=== PATIENT | male | born 1945 | race Caucasian/White ===

== ENCOUNTER 2019-04-11 14:08 | Emergency (ER) | payer MEDICARE, OTHER ==
[~2019-04-11] VITALS: Ht 177.8 cm; Wt 117.9 kg
[~2019-04-11 14:08] MED LIST: ACET325 PO; ALBU3IS; ALFALFA PO; ALFALFA600 MG PO; ASCO500 PO; ASPIRIN 81 MG PO; Ativan1 MG PO; CITA20 PO; Ceftriaxone2 G1 IV; Colace100 MG PO; DOXY100 PO; GABA300 PO; GINGER ROOT1 GM PO; LEVFLO500 PO; LORA1 PO; METH10 PO; NICO14TP TOP; Neurontin300 MG PO; OMEP20ER PO; OXYC30 PO; PAU D ARCO PO; PREG200 PO; Prednisone20 MG PO; VITAMIN C PO; WARF6 PO; [UNRECOGNIZED DRUG - OTHER] PO
[2019-04-11 15:50] LABS: BASOPHILS ABSOLUTE AUTO 0.06 K/mm3 (0.00-0.23); BASOPHILS PERCENT AUTO 1 % (0-2); EOSINOPHILS ABSOLUTE AUTO 0.06 K/mm3 (0.00-0.68); EOSINOPHILS PERCENT AUTO 1 % (0-6); Hematocrit 48.6 % (37.0-53.0); Hemoglobin 14.5 g/dL (13.5-17.5); IMMATURE GRAN ABSOLUTE AUTO 0.05 K/mm3 (0.00-0.10); IMMATURE GRAN PERCENT AUTO 0 % (0-1); LYMPHOCYTES ABSOLUTE AUTO 1.25 K/mm3 (0.84-5.20); LYMPHOCYTES PERCENT AUTO 11 % (21-46); MONOCYTES ABSOLUTE AUTO 0.76 K/mm3 (0.16-1.47); MONOCYTES PERCENT AUTO 6 % (4-13); Mean Corpuscular HGB 27.5 pg (26.0-34.0); Mean Corpuscular HGB Conc 29.8 g/dL (31.5-36.5); Mean Corpuscular Volume 92 fL (80-100); Mean Platelet Volume 10.8 fL (9.1-12.4); NEUTROPHILS ABSOLUTE AUTO 9.65 K/mm3 (1.96-9.15); NEUTROPHILS PERCENT AUTO 82 % (41-73); Platelet Count 189 K/mm3 (150-400); RDW Coefficient Variation 16.8 % (11.7-14.2); RDW Standard Deviation 55.8 fL (35.1-46.3); Red Blood Cell Count 5.27 M/mm3 (4.30-5.90); White Blood Cell Count 11.83 K/mm3 (4.00-11.30)
[2019-04-11 16:13] LABS: Troponin I <0.015 ng/mL (0.000-0.040)
[2019-04-11 16:14] LABS: Alanine Aminotransfer (ALT/SGP 20 U/L (12-78); Albumin, Blood 2.6 g/dL (3.4-5.0); Albumin/Globulin Ratio 0.6 (0.8-1.8); Alk Phos 115 U/L (50-136); Anion Gap 1 mmol/L (6-16); Aspartate Aminotrans (AST/SGOT 16 U/L (12-37); Bilirubin, Total 0.6 mg/dL (0.1-1.0); Blood Urea Nitrogen 12 mg/dL (8-24); CO2, Blood 35 mmol/L (21-32); Calcium, Blood 8.1 mg/dL (8.5-10.1); Chloride, Blood 103 mmol/L (98-108); Creatinine, Blood 0.92 mg/dL (0.60-1.20); Globulin, Blood 4.7 g/dL (2.2-4.0); Glomerular Filtration Rate >60 (60-); Glucose, Blood 89 mg/dL (70-99); Sodium, Blood 139 mmol/L (136-145); Total Protein, Blood 7.3 g/dL (6.4-8.2)
[2019-04-11 16:18] LABS: Source, Urine Clean Catch
[2019-04-11 16:27] LABS: Bilirubin, Urine Neg (Neg); Blood, Urine 2+ (Neg); Glucose Qualitative, Urine Neg (Neg); Ketones, Urine Neg (Neg); Leukocyte Esterase, Urine Neg (Neg); Nitrite, Urine Neg (Neg); Protein, Urine 2+ (Neg); Specific Gravity, Urine 1.015 (1.003-1.022); Urobilinogen, Urine 1+ (Normal)
[2019-04-11 16:37] LABS: Appearance, Urine Clear (Clear); Color, Urine Yellow (P-Yellow)
[2019-04-11 16:38] LABS: White Blood Cells, Urine 0-2 /hpf (0-5)
[2019-04-11 16:39] LABS: Bacteria Few /hpf; Squamous Epithelial Cells Few /hpf (Few)
[2019-04-11 16:41] LABS: U Amphetamine Screen Not Detected; U Barbituate Screen Not Detected; U Benzodiazapine Screen Not Detected; U Buprenorphine Screen DETECTED; U Cannabinoids Screen Not Detected; U Cocaine Screen Not Detected; U Methadone Screen Not Detected; U Methamphetamine Screen Not Detected; U Opiates Screen Not Detected; U Oxycodone Screen Not Detected; U Phencyclidine Screen Not Detected; U Propoxyphene Screen Not Detected
[2019-04-11] MEDS ORDERED: Roxicodone5 MG PO (17:07)
== END 2019-04-11 17:32 | disposition home or self-care (01) ==
LOC: ER 14:08
PROVIDERS: Physician Assistant
DX: M54.5 Low back pain (principal); G89.29 Other chronic pain; F11.23 Opioid dependence with withdrawal; Z88.5 Allergy status to narcotic agent; Z79.899 Other long term (current) drug therapy; Z79.01 Long term (current) use of anticoagulants; Z79.891 Long term (current) use of opiate analgesic; F17.200 Nicotine dependence, unspecified, uncomplicated
CPT/HCPCS: 36415; 72131; 80053; 81001; 84484; 85025; 99284-25

== ENCOUNTER → 2019-05-10 | Outpatient (CLI) | payer MEDICARE, OTHER ==
[~2019-05-10] MED LIST changes: +Roxicodone5 MG PO
== END | disposition home or self-care (01) ==
LOC: LAB 10:56 → LAB SHORT 10:56
DX: E11.9 Type 2 diabetes mellitus without complications (principal)
CPT/HCPCS: 82043

== ENCOUNTER 2019-10-30 09:15 | Emergency (ER) | payer MEDICARE ==
[~2019-10-30] VITALS: Ht 177.8 cm; Wt 122.5 kg
[2019-10-30] MEDS ORDERED: TAMS.4ER PO (09:46)
[2019-10-30] MEDS ORDERED: DULO60 PO (09:46)
[2019-10-30] MEDS ORDERED: OXYC10TA19 PO (09:48)
[2019-10-30] MEDS ORDERED: WARF4 PO (09:48)
[2019-10-30] MEDS ORDERED: ONDA4 PO (09:49)
[2019-10-30] MEDS ORDERED: GABA300 PO (09:51)
[2019-10-30] MEDS ORDERED: GLIM2 PO (09:52)
[2019-10-30] MEDS ORDERED: FLUO10 PO (09:53)
[2019-10-30] MEDS ORDERED: Zithromax250 MG PO (11:53)
== END 2019-10-30 14:10 | disposition home or self-care (01) ==
LOC: ER 09:15
DX: J44.0 Chronic obstructive pulmonary disease with (acute) lower respiratory infection (principal); J18.9 Pneumonia, unspecified organism; G89.29 Other chronic pain; J44.9 Chronic obstructive pulmonary disease, unspecified; F11.10 Opioid abuse, uncomplicated; E11.40 Type 2 diabetes mellitus with diabetic neuropathy, unspecified; E11.65 Type 2 diabetes mellitus with hyperglycemia; Z88.5 Allergy status to narcotic agent; Z79.899 Other long term (current) drug therapy; Z79.891 Long term (current) use of opiate analgesic; Z79.01 Long term (current) use of anticoagulants; Z87.891 Personal history of nicotine dependence
CPT/HCPCS: 36415; 71046; 82947; 96365; 99284-25; J0696

== ENCOUNTER 2019-11-03 15:53 | Inpatient (IN) | payer MEDICARE ==
[~2019-11-03] VITALS: Ht 177.8 cm; Wt 113.4 kg
[~2019-11-03 15:53] MED LIST changes: +DULO60 PO; +FLUO10 PO; +GLIM2 PO; +ONDA4 PO; +OXYC10TA19 PO; +TAMS.4ER PO; +WARF4 PO; +Zithromax250 MG PO
[2019-11-03 16:25] LABS: BASOPHILS ABSOLUTE AUTO 0.03 K/mm3 (0.00-0.23); BASOPHILS PERCENT AUTO 0 % (0-2); EOSINOPHILS ABSOLUTE AUTO 0.03 K/mm3 (0.00-0.68); EOSINOPHILS PERCENT AUTO 0 % (0-6); Hematocrit 47.3 % (37.0-53.0); Hemoglobin 13.4 g/dL (13.5-17.5); IMMATURE GRAN ABSOLUTE AUTO 0.04 K/mm3 (0.00-0.10); IMMATURE GRAN PERCENT AUTO 1 % (0-1); LYMPHOCYTES ABSOLUTE AUTO 0.93 K/mm3 (0.84-5.20); LYMPHOCYTES PERCENT AUTO 11 % (21-46); MONOCYTES ABSOLUTE AUTO 0.46 K/mm3 (0.16-1.47); MONOCYTES PERCENT AUTO 5 % (4-13); Mean Corpuscular HGB 30.3 pg (26.0-34.0); Mean Corpuscular HGB Conc 28.3 g/dL (31.5-36.5); Mean Corpuscular Volume 107 fL (80-100); Mean Platelet Volume 10.7 fL (9.1-12.4); NEUTROPHILS ABSOLUTE AUTO 7.33 K/mm3 (1.96-9.15); NEUTROPHILS PERCENT AUTO 83 % (41-73); Platelet Count 249 K/mm3 (150-400); RDW Coefficient Variation 16.2 % (11.7-14.2); RDW Standard Deviation 65.6 fL (35.1-46.3); Red Blood Cell Count 4.42 M/mm3 (4.30-5.90); White Blood Cell Count 8.82 K/mm3 (4.00-11.30)
[2019-11-03 16:52] LABS: Alanine Aminotransfer (ALT/SGP 50 U/L (12-78); Albumin, Blood 2.6 g/dL (3.4-5.0); Albumin/Globulin Ratio 0.5 (0.8-1.8); Alk Phos 496 U/L (50-136); Anion Gap -5 mmol/L (6-16); Aspartate Aminotrans (AST/SGOT 19 U/L (12-37); Bilirubin, Total 0.5 mg/dL (0.1-1.0); Blood Urea Nitrogen 23 mg/dL (8-24); Bun/Creatinine Ratio 26.5 (12.0-20.0); CO2, Blood 43 mmol/L (21-32); Calcium, Blood 8.6 mg/dL (8.5-10.1); Chloride, Blood 99 mmol/L (98-108); Creatinine, Blood 0.87 mg/dL (0.60-1.20); Globulin, Blood 4.9 g/dL (2.2-4.0); Glomerular Filtration Rate >60 (60-); Glucose, Blood 114 mg/dL (70-99); Potassium, Blood 5.4 mmol/L (3.5-5.5); Sodium, Blood 137 mmol/L (136-145); Total Protein, Blood 7.5 g/dL (6.4-8.2)
[2019-11-03 18:03] LABS: PO2 Arterial 72.5 mmHg (80-100); pH Blood Arterial 7.32 (7.35-7.45)
[2019-11-03 18:04] LABS: PCO2 Arterial 86.7 mmHg (35-45)
[2019-11-03] MEDS ORDERED: WARF1 PO (18:48)
[2019-11-03] MEDS ORDERED: Coumadin2 MG PO (18:49)
[2019-11-03] MEDS ORDERED: LORA.5 PO (18:50)
[2019-11-03 19:50] LABS: Source, Urine Clean Catch
[2019-11-03 19:59] LABS: Bilirubin, Urine Neg (Neg); Blood, Urine 1+ (Neg); Glucose Qualitative, Urine Neg (Neg); Ketones, Urine Neg (Neg); Leukocyte Esterase, Urine Neg (Neg); Nitrite, Urine Neg (Neg); Protein, Urine 3+ (Neg); Specific Gravity, Urine 1.025 (1.003-1.022); Urobilinogen, Urine NORM (Normal)
[2019-11-03 20:01] LABS: Appearance, Urine Clear (Clear); Color, Urine Yellow (P-Yellow)
[2019-11-03 20:06] LABS: Bacteria Mod /hpf; Mucus Light (0-Heavy); Red Blood Cells, Urine 0-2 /hpf (0-2); Squamous Epithelial Cells Few /hpf (Few); White Blood Cells, Urine 0-2 /hpf (0-5)
--- NOTE | 2019-11-04 03:23 | NUR ---
74 YR OLD MALE ADMITTED TO FLOOR FROM THE ED LAST PM WITH DX PNEUMONIA. UPON ADMISSION, PT SEEMED QUITE CONFUSED, DIDNT KNOW OR COULDNT REMEMBER ABOUT HIS MEDS. TOLERATED HS MEDS WELL. IVF AT [facility]. ACCU CHECK 130. HAS BEEN RESTING QUIETLY WITH FEW INTERRUPTIONS SINCE. WAS ORIENTED TO CALL LIGHT, CALL LIGHT IN REACH.
[2019-11-04 05:36] LABS: BASOPHILS ABSOLUTE AUTO 0.01 K/mm3 (0.00-0.23); BASOPHILS PERCENT AUTO 0 % (0-2); EOSINOPHILS PERCENT AUTO 0 % (0-6); Hematocrit 47.5 % (37.0-53.0); Hemoglobin 13.8 g/dL (13.5-17.5); IMMATURE GRAN ABSOLUTE AUTO 0.03 K/mm3 (0.00-0.10); IMMATURE GRAN PERCENT AUTO 0 % (0-1); LYMPHOCYTES ABSOLUTE AUTO 0.49 K/mm3 (0.84-5.20); LYMPHOCYTES PERCENT AUTO 6 % (21-46); MONOCYTES ABSOLUTE AUTO 0.05 K/mm3 (0.16-1.47); MONOCYTES PERCENT AUTO 1 % (4-13); Mean Corpuscular HGB 29.9 pg (26.0-34.0); Mean Corpuscular HGB Conc 29.1 g/dL (31.5-36.5); Mean Platelet Volume 10.9 fL (9.1-12.4); NEUTROPHILS ABSOLUTE AUTO 7.73 K/mm3 (1.96-9.15); NEUTROPHILS PERCENT AUTO 93 % (41-73); Platelet Count 226 K/mm3 (150-400); RDW Coefficient Variation 16.1 % (11.7-14.2); RDW Standard Deviation 61.7 fL (35.1-46.3); Red Blood Cell Count 4.61 M/mm3 (4.30-5.90); White Blood Cell Count 8.31 K/mm3 (4.00-11.30)
[2019-11-04 05:50] LABS: International Normalized Ratio 2.32; Prothrombin Time Results 23.7 Sec (9.7-11.5)
[2019-11-04 06:01] LABS: Mean Corpuscular Volume 103 fL (80-100)
[2019-11-04 06:17] LABS: Alanine Aminotransfer (ALT/SGP 43 U/L (12-78); Albumin, Blood 2.4 g/dL (3.4-5.0); Albumin/Globulin Ratio 0.5 (0.8-1.8); Alk Phos 507 U/L (50-136); Anion Gap 4 mmol/L (6-16); Aspartate Aminotrans (AST/SGOT 20 U/L (12-37); Bilirubin, Total 0.8 mg/dL (0.1-1.0); Blood Urea Nitrogen 21 mg/dL (8-24); Bun/Creatinine Ratio 26.6 (12.0-20.0); CO2, Blood 37 mmol/L (21-32); Calcium, Blood 8.4 mg/dL (8.5-10.1); Chloride, Blood 98 mmol/L (98-108); Creatinine, Blood 0.79 mg/dL (0.60-1.20); Globulin, Blood 4.8 g/dL (2.2-4.0); Glomerular Filtration Rate >60 (60-); Glucose, Blood 156 mg/dL (70-99); Potassium, Blood 5.4 mmol/L (3.5-5.5); Sodium, Blood 139 mmol/L (136-145); Total Protein, Blood 7.2 g/dL (6.4-8.2); Troponin I <0.015 ng/mL (0.000-0.040)
--- NOTE | 2019-11-04 11:32 | NUR ---
echocardiogram completed
[2019-11-04 12:00] LABS: Adenovirus Not Detected (NOT DETECT); Bordetella pertussis Not Detected (NOT DETECT); Chlamydophila pneumoniae Not Detected (NOT DETECT); Coronavirus 229E Not Detected (NOT DETECT); Coronavirus HKU1 Not Detected (NOT DETECT); Coronavirus NL63 Not Detected (NOT DETECT); Coronavirus OC43 Not Detected (NOT DETECT); Human Metapneumovirus Not Detected (NOT DETECT); Human Rhinovirus/Enterovirus Not Detected (NOT DETECT); Influenza A Not Detected (NOT DETECT); Influenza A/2009-H1 Not Detected (NOT DETECT); Influenza A/H1 Not Detected (NOT DETECT); Influenza A/H3 Not Detected (NOT DETECT); Influenza B Not Detected (NOT DETECT); Mycoplasma pneumoniae Not Detected (NOT DETECT); Parainfluenza Virus 1 Not Detected (NOT DETECT); Parainfluenza Virus 2 Not Detected (NOT DETECT); Parainfluenza Virus 3 Not Detected (NOT DETECT); Parainfluenza Virus 4 Not Detected (NOT DETECT); Respiratory Syncytial Virus Not Detected (NOT DETECT)
--- NOTE | 2019-11-04 18:54 | NUR ---
Shift Summary A/O, pt started the day being ornery; however, throughout the day, pt is much more pleasant as his pain is more under controlled. Medicated for neuropathy with scheduled meds per EMAR. SBA c gait for safety to bedside commode, needs assistance with urinal. Uses call light appropriately, but also hollars out for nursing staff d/t urgency. Med list completed with at bedside. 4L O2 via NC, saturations remained at 90% and above t/o shift. Appetite was good, follow directions well. No other concerns at this time. Will continue to monitor.
[2019-11-05 04:57] LABS: BASOPHILS ABSOLUTE AUTO 0.01 K/mm3 (0.00-0.23); BASOPHILS PERCENT AUTO 0 % (0-2); EOSINOPHILS PERCENT AUTO 0 % (0-6); Hematocrit 45.9 % (37.0-53.0); Hemoglobin 14.3 g/dL (13.5-17.5); IMMATURE GRAN ABSOLUTE AUTO 0.07 K/mm3 (0.00-0.10); IMMATURE GRAN PERCENT AUTO 1 % (0-1); LYMPHOCYTES ABSOLUTE AUTO 0.59 K/mm3 (0.84-5.20); LYMPHOCYTES PERCENT AUTO 5 % (21-46); MONOCYTES ABSOLUTE AUTO 0.32 K/mm3 (0.16-1.47); MONOCYTES PERCENT AUTO 3 % (4-13); Mean Corpuscular HGB 29.9 pg (26.0-34.0); Mean Corpuscular HGB Conc 31.2 g/dL (31.5-36.5); Mean Platelet Volume 10.9 fL (9.1-12.4); NEUTROPHILS ABSOLUTE AUTO 11.15 K/mm3 (1.96-9.15); NEUTROPHILS PERCENT AUTO 92 % (41-73); Platelet Count 277 K/mm3 (150-400); RDW Coefficient Variation 15.9 % (11.7-14.2); RDW Standard Deviation 56.7 fL (35.1-46.3); Red Blood Cell Count 4.78 M/mm3 (4.30-5.90); White Blood Cell Count 12.14 K/mm3 (4.00-11.30)
[2019-11-05 04:58] LABS: Mean Corpuscular Volume 96 fL (80-100)
[2019-11-05 05:03] LABS: PO2 Arterial 70.4 mmHg (80-100); pH Blood Arterial 7.47 (7.35-7.45)
[2019-11-05 05:13] LABS: International Normalized Ratio 2.4; Prothrombin Time Results 24.4 Sec (9.7-11.5)
[2019-11-05 05:48] LABS: Alanine Aminotransfer (ALT/SGP 32 U/L (12-78); Albumin, Blood 2.3 g/dL (3.4-5.0); Albumin/Globulin Ratio 0.5 (0.8-1.8); Alk Phos 436 U/L (50-136); Anion Gap 3 mmol/L (6-16); Aspartate Aminotrans (AST/SGOT 13 U/L (12-37); Bilirubin, Total 0.6 mg/dL (0.1-1.0); Blood Urea Nitrogen 27 mg/dL (8-24); Bun/Creatinine Ratio 28.2 (12.0-20.0); CO2, Blood 38 mmol/L (21-32); Calcium, Blood 8.4 mg/dL (8.5-10.1); Chloride, Blood 96 mmol/L (98-108); Creatinine, Blood 0.96 mg/dL (0.60-1.20); Globulin, Blood 4.8 g/dL (2.2-4.0); Glomerular Filtration Rate >60 (60-); Glucose, Blood 205 mg/dL (70-99); Phosphorus, Blood 2.7 mg/dL (2.5-4.9); Potassium, Blood 4.5 mmol/L (3.5-5.5); Sodium, Blood 137 mmol/L (136-145); Total Protein, Blood 7.1 g/dL (6.4-8.2)
--- NOTE | 2019-11-05 05:48 | NUR ---
PATIENT HAD NO ACUTE CHANGES THIS SHIFT. HE WAS PLEASANT AND COOPERATIVE WITH CARE. HE VOIDED WELL. HE STILL SOUNDS COARSE THRU OUT HIS LUNG SCHAEFER AND COUGHS INTERMITTENTLY. PT RECEIVED SCHEDULED MEDS PER EMAR THIS SHIFT. HIS IV BECAME OCCLUDED AND SO A NEW 20G WAS PLACED ON THE LEFT HAND. BED LOW AND LOCKED AND ALARMED. CALL MOSS WITHIN REACH.
--- NOTE | 2019-11-05 12:53 | NUR ---
OXYCONTIN NOW DISCUSSED TIME FRAME FOR OXYCONTIN WITH DR. SOLITARIO. UPDATED EMAR TO REFLECT SCHEDULED [address] SOLITARIO.
--- NOTE | 2019-11-05 18:26 | NUR ---
Shift Summary A/Ox3. Pleasant with care, uses call light appropriately. Remains on 4L NC. Denies SOB, unlabored breathing, saturations >92%. Still needs assistance with urinal; however, with encouragement, patient will participate with self-care and urinal use. Medicated for pain with scheduled meds, received good results. L/S clear throughout. Tele: SR BBB @ 100. No other concerns or changes.
[2019-11-06 05:48] LABS: BASOPHILS ABSOLUTE AUTO 0.02 K/mm3 (0.00-0.23); BASOPHILS PERCENT AUTO 0 % (0-2); EOSINOPHILS ABSOLUTE AUTO 0.05 K/mm3 (0.00-0.68); EOSINOPHILS PERCENT AUTO 0 % (0-6); Hematocrit 48.6 % (37.0-53.0); Hemoglobin 15.2 g/dL (13.5-17.5); IMMATURE GRAN ABSOLUTE AUTO 0.05 K/mm3 (0.00-0.10); IMMATURE GRAN PERCENT AUTO 0 % (0-1); LYMPHOCYTES ABSOLUTE AUTO 1.78 K/mm3 (0.84-5.20); LYMPHOCYTES PERCENT AUTO 13 % (21-46); MONOCYTES ABSOLUTE AUTO 1.34 K/mm3 (0.16-1.47); MONOCYTES PERCENT AUTO 10 % (4-13); Mean Corpuscular HGB 30.1 pg (26.0-34.0); Mean Corpuscular HGB Conc 31.3 g/dL (31.5-36.5); Mean Corpuscular Volume 96 fL (80-100); Mean Platelet Volume 10.7 fL (9.1-12.4); NEUTROPHILS ABSOLUTE AUTO 10.47 K/mm3 (1.96-9.15); NEUTROPHILS PERCENT AUTO 76 % (41-73); Platelet Count 259 K/mm3 (150-400); RDW Coefficient Variation 16.3 % (11.7-14.2); RDW Standard Deviation 58.2 fL (35.1-46.3); Red Blood Cell Count 5.05 M/mm3 (4.30-5.90); White Blood Cell Count 13.71 K/mm3 (4.00-11.30)
[2019-11-06 05:58] LABS: International Normalized Ratio 2.65; Prothrombin Time Results 26.8 Sec (9.7-11.5)
[2019-11-06 06:06] LABS: Anion Gap 4 mmol/L (6-16); Blood Urea Nitrogen 31 mg/dL (8-24); Bun/Creatinine Ratio 32.5 (12.0-20.0); CO2, Blood 36 mmol/L (21-32); Calcium, Blood 8.4 mg/dL (8.5-10.1); Chloride, Blood 97 mmol/L (98-108); Creatinine, Blood 0.95 mg/dL (0.60-1.20); Glomerular Filtration Rate >60 (60-); Glucose, Blood 150 mg/dL (70-99); Potassium, Blood 4.2 mmol/L (3.5-5.5); Sodium, Blood 137 mmol/L (136-145)
--- NOTE | 2019-11-06 07:41 | NUR ---
SHIFT SUMMARY PATIENT ALERT AND ORIENTED. SLEEP STUDY PERFORMED OVERNIGHT. PATIENT CURRENTLY ON 4 LITERS O2 VIA NASAL CANULA. IV REMOVED FROM LEFT HAND DUE TO IT NOT BEING PATENT AND NEW IV INSERTED INTO LEFT WRIST. IV PATENT AND FLUSHED. BED IN LOWEST POSITION WITH WHEELS LOCKED. CALL LIGHT WITHIN REACH. REPORT GIVEN TO ONCOMING RN.
--- NOTE | 2019-11-06 18:07 | NUR ---
SHIFT SUMMARY: PATIENT REPORTED CHRONIC PAIN THROUGHOUT THE SHIFT. MANAGED WITH SCHEDULED PAIN MEDICATIONS. PATIENT DENIED NEED FOR FURTHER INTERVENTION. PATIENT REPORTED IMPROVEMENT WITH SOB. MINIMAL SOB WITH ACTIVITY (EX: UP TO THE BS). PATIENT WORKED WITH PT TODAY. PATIENT'S BIGGEST CONCERN WAS LACK OF BOWEL MOVEMENT. PATIENT REQUESTED STARTING WITH PRUNE JUICE RATHER THAN MILK OF MAG. PATIENT ABLE TO HAVE AN EXTRA LARGE BM THIS AFTERNOON. PATIENT REPORTED INCREASED RELIEF. PATIENT ABLE TO REST THIS AFTERNOON.
[2019-11-07 05:54] LABS: BASOPHILS ABSOLUTE AUTO 0.03 K/mm3 (0.00-0.23); BASOPHILS PERCENT AUTO 0 % (0-2); EOSINOPHILS ABSOLUTE AUTO 0.19 K/mm3 (0.00-0.68); EOSINOPHILS PERCENT AUTO 2 % (0-6); Hemoglobin 15.7 g/dL (13.5-17.5); IMMATURE GRAN ABSOLUTE AUTO 0.05 K/mm3 (0.00-0.10); IMMATURE GRAN PERCENT AUTO 1 % (0-1); LYMPHOCYTES ABSOLUTE AUTO 1.98 K/mm3 (0.84-5.20); LYMPHOCYTES PERCENT AUTO 20 % (21-46); MONOCYTES ABSOLUTE AUTO 1.08 K/mm3 (0.16-1.47); MONOCYTES PERCENT AUTO 11 % (4-13); Mean Corpuscular HGB 29.2 pg (26.0-34.0); Mean Corpuscular HGB Conc 30.2 g/dL (31.5-36.5); Mean Corpuscular Volume 97 fL (80-100); Mean Platelet Volume 10.9 fL (9.1-12.4); NEUTROPHILS ABSOLUTE AUTO 6.82 K/mm3 (1.96-9.15); NEUTROPHILS PERCENT AUTO 67 % (41-73); Platelet Count 275 K/mm3 (150-400); RDW Standard Deviation 57.3 fL (35.1-46.3); Red Blood Cell Count 5.37 M/mm3 (4.30-5.90); White Blood Cell Count 10.15 K/mm3 (4.00-11.30)
--- NOTE | 2019-11-07 05:54 | NUR ---
SHIFT SUMMARY PATIENT ALERT AND ORIENTED. WAS ABLE TO SLEEP MOST OF THE NIGHT. PATIENT CURRENTLY ON 4 LITERS O2 VIA NASAL CANULA. IV PATENT AND FLUSHED. BED IN LOWEST POSITION WITH WHEELS LOCKED. CALL LIGHT AND BELONGINGS WITHIN REACH. REPORT GIVEN TO ONCFILIPPO LUIS.
[2019-11-07 06:04] LABS: International Normalized Ratio 3.63; Prothrombin Time Results 36.1 Sec (9.7-11.5)
[2019-11-07 06:12] LABS: Anion Gap 4 mmol/L (6-16); Blood Urea Nitrogen 33 mg/dL (8-24); Bun/Creatinine Ratio 31.1 (12.0-20.0); CO2, Blood 35 mmol/L (21-32); Calcium, Blood 8.6 mg/dL (8.5-10.1); Chloride, Blood 98 mmol/L (98-108); Creatinine, Blood 1.06 mg/dL (0.60-1.20); Glomerular Filtration Rate >60 (60-); Glucose, Blood 127 mg/dL (70-99); Potassium, Blood 4.3 mmol/L (3.5-5.5); Sodium, Blood 137 mmol/L (136-145)
--- NOTE | 2019-11-07 10:25 | NUR ---
BLE ASSESSMENT: BLE PURPLE AND COOL TO TOUCH. THIS RN ABLE TO LOCATE RIGHT POSTERIROR TIBIAL PULSE WITH DOPPLER, BUT NO OTHER PULSES IN FEET. PT REPORTS SEVERE NUMBNESS AND TINGLING TO BOTH FEET. WILL NOTIFY DOCTOR.
--- NOTE | 2019-11-07 18:17 | NUR ---
SHIFT SUMMARY: PT A&O X4. CALLS APPROPRIATELY. UP IN CHAIR WITH 1 PERSON ASSIST USING FWW FOR ALL MEALS. CARDIOLOGY TO BE CONSULTED TOMORROW AM PER DR. DELANEY IT IS NOT URGENT. DR. DELANEY ALSO ASSESSED PT'S BLE COLOR/TEMP. PT HAS HAD AN UNEVENTFUL DAY. VITAL SIGNS STABLE. WILL CONTINUE TO MONITOR AND REPORT TO ONCOMING RN.
[2019-11-08 06:02] LABS: BASOPHILS ABSOLUTE AUTO 0.04 K/mm3 (0.00-0.23); BASOPHILS PERCENT AUTO 1 % (0-2); EOSINOPHILS ABSOLUTE AUTO 0.21 K/mm3 (0.00-0.68); EOSINOPHILS PERCENT AUTO 2 % (0-6); Hematocrit 50.2 % (37.0-53.0); Hemoglobin 15.6 g/dL (13.5-17.5); IMMATURE GRAN ABSOLUTE AUTO 0.05 K/mm3 (0.00-0.10); IMMATURE GRAN PERCENT AUTO 1 % (0-1); LYMPHOCYTES ABSOLUTE AUTO 1.64 K/mm3 (0.84-5.20); LYMPHOCYTES PERCENT AUTO 19 % (21-46); MONOCYTES ABSOLUTE AUTO 0.82 K/mm3 (0.16-1.47); MONOCYTES PERCENT AUTO 9 % (4-13); Mean Corpuscular HGB Conc 31.1 g/dL (31.5-36.5); Mean Corpuscular Volume 97 fL (80-100); Mean Platelet Volume 10.7 fL (9.1-12.4); NEUTROPHILS ABSOLUTE AUTO 6.12 K/mm3 (1.96-9.15); NEUTROPHILS PERCENT AUTO 69 % (41-73); Platelet Count 241 K/mm3 (150-400); RDW Standard Deviation 56.8 fL (35.1-46.3); White Blood Cell Count 8.88 K/mm3 (4.00-11.30)
[2019-11-08 06:27] LABS: Anion Gap 5 mmol/L (6-16); Blood Urea Nitrogen 35 mg/dL (8-24); Bun/Creatinine Ratio 32.1 (12.0-20.0); CO2, Blood 32 mmol/L (21-32); Calcium, Blood 8.6 mg/dL (8.5-10.1); Chloride, Blood 100 mmol/L (98-108); Creatinine, Blood 1.09 mg/dL (0.60-1.20); Glomerular Filtration Rate >60 (60-); Glucose, Blood 137 mg/dL (70-99); Potassium, Blood 4.4 mmol/L (3.5-5.5); Sodium, Blood 137 mmol/L (136-145)
[2019-11-08 06:29] LABS: International Normalized Ratio 2.66; Prothrombin Time Results 26.9 Sec (9.7-11.5)
--- NOTE | 2019-11-08 07:20 | NUR ---
SHIFT SUMMARY PATIENT ALERT AND ORIENTED. FEET AND LOWER LEGS COOL TO THE TOUCH, WRAPPED THEM IN WARM BLANKETS TO PROMOTE CIRCULATION. IV PATENT AND FLUSHED. PATIENT CURRENTLY ON 3.5 LITERS O2 VIA NASAL CANULA. CARDIOLOGY CONSULT CALLED INTO ANSWERING SERVICE. BED IN LOWEST POSITION WITH WHEELS LOCKED. CALL LIGHT WITHIN REACH. REPORT GIVEN TO ONCOMING RN.
--- NOTE | 2019-11-08 16:05 | NUR ---
SHIFT SUMMARY PT IS A/O X 4 AND HAS C/O CHRONIC PAIN FOR WHICH HE HAS SCHEDULED MEDS REFLECTED ON THE NOV. PT IS VERY PLEASANT AND COOPERATIVE WITH HIS CARE. PT HAS BEEN AMBULATING TO THE TOILET WITH X 1 ASSIST AND FWW. PRODUCT SAFETY MANAGER REPORTS SINUS RHYTHM. PER DR BROWN THE PLAN IS FOR THE PT TO DC TO SNF TODAY. AWAITING TRANPORTATION TIME FROM [facility]. IS AT THE BEDSIDE NOW. PT HAS WORKED WITH THERAPIES TODAY. PT IS ABLE TO MAKE HIS NEEDS KNOWN AND CALLS FOR HELP WHEN NEEDED. CALL LIGHT IN REACH.
[2019-11-08] MEDS ORDERED: OXYC10ER PO (16:43)
[2019-11-08] MEDS ORDERED: WARF6 PO ×2 (16:44→16:45)
[2019-11-08] MEDS ORDERED: ALBU90OI INH (16:45)
[2019-11-08] MEDS ORDERED: ASPI81CH PO (16:45)
[2019-11-08] MEDS ORDERED: BISA10S PR (16:46)
[2019-11-08] MEDS ORDERED: FAMO10 PO (16:46)
[2019-11-08] MEDS ORDERED: FURO40 PO (16:47)
[2019-11-08] MEDS ORDERED: GUAI600T33 PO (16:48)
[2019-11-08] MEDS ORDERED: Humalog100 UNIT/1 SC (16:51)
[2019-11-08] MEDS ORDERED: LEVO750 PO (16:51)
[2019-11-08] MEDS ORDERED: Lisinopril2.5 MG PO (16:51)
[2019-11-08] MEDS ORDERED: MILK OF MA400 MG/5 M PO (16:52)
[2019-11-08] MEDS ORDERED: POTA10T PO (16:53)
== END 2019-11-08 17:54 | DRG 291 ==
LOC: ER 15:53 → MEDS 21:45
PROVIDERS: Emergency Medicine; Family Medicine; Hospitalist; ADMIT Family Medicine
DX: I50.43 Acute on chronic combined systolic (congestive) and diastolic (congestive) heart failure (principal); J18.9 Pneumonia, unspecified organism; J96.21 Acute and chronic respiratory failure with hypoxia; J96.22 Acute and chronic respiratory failure with hypercapnia; J44.1 Chronic obstructive pulmonary disease with (acute) exacerbation; J44.0 Chronic obstructive pulmonary disease with (acute) lower respiratory infection; C90.00 Multiple myeloma not having achieved remission; F11.20 Opioid dependence, uncomplicated; E87.2 Acidosis; F19.20 Other psychoactive substance dependence, uncomplicated; E11.42 Type 2 diabetes mellitus with diabetic polyneuropathy; F32.9 Major depressive disorder, single episode, unspecified; F17.210 Nicotine dependence, cigarettes, uncomplicated; N40.0 Benign prostatic hyperplasia without lower urinary tract symptoms; Z99.81 Dependence on supplemental oxygen; E11.43 Type 2 diabetes mellitus with diabetic autonomic (poly)neuropathy; E11.69 Type 2 diabetes mellitus with other specified complication; E66.01 Morbid (severe) obesity due to excess calories; G47.33 Obstructive sleep apnea (adult) (pediatric); G89.4 Chronic pain syndrome; G62.9 Polyneuropathy, unspecified; I27.20 Pulmonary hypertension, unspecified; I35.0 Nonrheumatic aortic (valve) stenosis; I87.2 Venous insufficiency (chronic) (peripheral); Z68.35 Body mass index [BMI] 35.0-35.9, adult; Z79.891 Long term (current) use of opiate analgesic; Z86.711 Personal history of pulmonary embolism; Z79.01 Long term (current) use of anticoagulants
CPT/HCPCS: 0099U; 36415; 36600; 71045; 80048; 80053; 81001; 82803; 82947; 83036; 83605; 83735; 83880; 84100; 84145; 84484; 85025; 85610; 85651; 86140; 87086; 93005; 93010; 94640; 94644; 94760; 94762; 96365; 96366; 96368; 96375; 97110; 97116; 97162; 97166; 97530; 97535; 99285-25; A9270-GY; C8929; J0696; J1100; J1940; J1956; J2310; J2930; J7030; Q9957